=== PATIENT | female | born 1935 | race Caucasian/White ===

== ENCOUNTER → 2016-09-27 | Outpatient (CLI) | payer MEDICARE ==
[~2016-09-27] MED LIST: ACET-732 PO; AMLO5TAB; ASPI-558; FURO-35 PO; GABA-222 PO; LEVO100T81; MECL-38 PO; METO50TA9 PO; NITR0.4T39 SL; OMEP-29 PO; POTA10CA32 PO; SIMV40TA82 PO; TIZA2CAP7 PO; [UNRECOGNIZED DRUG - CODE]
== END ==
LOC: IMA 13:00
PROVIDERS: ATTEND Orthopaedic Surgery
DX: M81.0 Age-related osteoporosis without current pathological fracture (principal); Z87.828 Personal history of other (healed) physical injury and trauma; Z90.722 Acquired absence of ovaries, bilateral; Z90.710 Acquired absence of both cervix and uterus; M85.80 Other specified disorders of bone density and structure, unspecified site